=== PATIENT | female | born 1950 | race Caucasian/White ===

== ENCOUNTER 2017-09-11 14:29 | Outpatient (CLI) | payer OTHER ==
--- NOTE | 2017-09-11 17:05 | RAD ---
PORTABLE CHEST 1 VIEW: Date: 09/11/17 Time: 1517 hours HISTORY: Drug reaction. FINDINGS: The heart size is borderline. The aorta is tortuous. The lungs are well expanded without focal areas of consolidation, pneumothorax, ingris pulmonary edema, or pleural effusion. There is a linear scar in the right upper lung. IMPRESSION: No acute process. POS: [facility]
== END 2017-09-11 14:30 | disposition home or self-care (01) ==
LOC: RAD-FRANK 14:29
PROVIDERS: ATTEND Nurse Practitioner Family
DX: T88.7XXA Unspecified adverse effect of drug or medicament, initial encounter (principal)
CPT/HCPCS: 71010